=== PATIENT | male | born 1975 | race Caucasian/White ===

== ENCOUNTER 2019-11-26 11:07 | Emergency (ER) | payer SELFPAY ==
[2019-11-27 00:02] LABS: Protime INR 1.11
[2019-11-27 00:04] LABS: Absolute Lymphocytes (CBC) 2.8 K/uL (0.7-4.9); Basophils % 0.4 % (0-1.3); Lymphocytes % 36.7 % (15.3-44.8); MPV 8.6 fL (7.6-11.3); RBC Red Blood Cell Count 5.61 M/uL (4.33-5.43)
[2019-11-27 00:19] LABS: ALT/SGPT 46 U/L (12-78); AST/SGOT 24 U/L (15-37); Albumin 4.1 g/dL (3.4-5.0); Alkaline Phosphatase 78 U/L (45-117); BUN Blood Urea Nitrogen 12 mg/dL (7-18); Bicarbonate 26 mmol/L (21-32); Bilirubin Direct 0.1 mg/dL (0-0.2); Bilirubin Total 0.5 mg/dL (0.2-1.0); Glucose Level 106 mg/dL (74-106); NT PRO-BNP 173 pg/mL (<125); Potassium 3.9 mmol/L (3.5-5.1); Protein, Total 8.8 g/dL (6.4-8.2); Sodium Level 140 mmol/L (136-145); Troponin (Emerg Dept Use Only) < 0.02 ng/mL (0.0-0.045)
--- NOTE | 2019-11-27 01:44 | EDPHYS ---
Physician Documentation [facility] Name: Nino Ramsey Age: 44 yrs Sex: Male : 1975 Arrival Date: 11/26/2019 Time: 23:11 Bed 16 Private MD: ED Physician Danielito Weaver HPI: 11/26 04:15 This 44 yrs old Male presents to ER via Ambulatory with complaints of tw4 Breathing Difficulty, Heart Racing. 04:15 The patient presents with a history of heart racing. Context: The symptoms occur with tw4 anxiety. Onset: The symptoms/episode began/occurred today. Duration: The patient or guardian reports a single episode, that lasted 1 minute(s). Modifying factors: The symptoms are aggravated by anxiety, caffeine, The symptoms are alleviated by nothing. Associated signs and symptoms: The patient has no apparent associated signs or symptoms. Severity of symptoms: At their worst the symptoms were mild in the emergency department the symptoms have resolved and did so just prior to arrival, have improved markedly. The patient has experienced similar episodes in the past, a few times. Historical: - Allergies: 11/25 23:15 No Known Allergies; ll1 - PMHx: 23:15 High Cholesterol; Hypertension; CHF; ll1 - PSHx: 23:15 None; ll1 - Immunization history:: Flu vaccine is not up to date. - Social history:: Smoking status: Patient reports the use of cigarette tobacco products, smokes one-half pack cigarettes per day, Patient/guardian denies using alcohol, street drugs. ROS: 11/26 04:15 Constitutional: Negative for fever, chills, and weight loss, Eyes: Negative for injury, tw4 pain, redness, and discharge, Respiratory: Negative for shortness of breath, cough, wheezing, and pleuritic chest pain, Abdomen/GI: Negative for abdominal pain, nausea, vomiting, diarrhea, and constipation, Back: Negative for injury and pain, MS/Extremity: Negative for injury and deformity, Skin: Negative for injury, rash, and discoloration, Neuro: Negative for headache, weakness, numbness, tingling, and seizure. Cardiovascular: Positive for palpitations, Negative for chest pain, edema, orthopnea. Exam: 04:15 Constitutional: This is a well developed, well nourished patient who is awake, alert, tw4 and in no acute distress. Head/Face: Normocephalic, atraumatic. Neck: Trachea midline, no thyromegaly or masses palpated, and no cervical lymphadenopathy. Supple, full range of motion without nuchal rigidity, or vertebral point tenderness. No Meningismus. Chest/axilla: Normal chest wall appearance and motion. Nontender with no deformity. No lesions are appreciated. Cardiovascular: Regular rate and rhythm with a normal S1 and S2. No gallops, murmurs, or rubs. Normal PMI, no JVD. No pulse deficits. Respiratory: Lungs have equal breath sounds bilaterally, clear to auscultation and percussion. No rales, rhonchi or wheezes noted. No increased work of breathing, no retractions or nasal flaring. Abdomen/GI: Soft, non-tender, with normal bowel sounds. No distension or tympany. No guarding or rebound. No evidence of tenderness throughout. Back: No spinal tenderness. No costovertebral tenderness. Full range of motion. MS/ Extremity: Pulses equal, no cyanosis. Neurovascular intact. Full, normal range of motion. Neuro: Awake and alert, GCS 15, oriented to person, place, time, and situation. Cranial nerves II-XII grossly intact. Motor strength 5/5 in all extremities. Sensory grossly intact. Cerebellar exam normal. Normal gait. Vital Signs: 11/25 23:16 BP 169 / 85; Pulse 80; Resp 18; Temp 98.7; Pulse Ox 98% ; Weight 143.34 kg; Height 6 ll1 ft. 0 in. (182.88 cm); Pain 0/10; 11/26 00:43 BP 141 / 71; Pulse 67; Resp 19; Pulse Ox 95% on R/A; Pain 0/10; mt2 01:45 BP 137 / 69; Pulse 63; Resp 17; Pulse Ox 96% on R/A; Pain 0/10; mt2 11/25 23:16 Body Mass Index 42.86 (143.34 kg, 182.88 cm) ll1 MDM: 11/25 23:40 Patient medically screened. tw4 11/26 04:15 Differential diagnosis: arrythmia, dehydration. Data reviewed: vital signs, nurses tw4 notes. Data reviewed: lab test result(s), CBC, electrolytes, EKG, radiologic studies, plain films. Data interpreted: Pulse oximetry: Interpretation: normal. Counseling: I had a detailed discussion with the patient and/or guardian regarding: the historical points, exam findings, and any diagnostic results supporting the discharge/admit diagnosis. Medical screen evaluation completed. EMTALA emergency medical condition absent. Special discussion: I discussed with the patient/guardian in detail that at this point there is no indication for admission to the hospital. It is understood, however, that if the symptoms persist or worsen the patient needs to return immediately for re-evaluation. 11/25 23:46 Order name: CBC with Diff; Complete Time: :41 11/26 01:41 Interpretation: Normal except: RBC 5.61. 11/25 23:46 Order name: LFT's; Complete Time: :11/26 01:41 Interpretation: Normal except: TP 8.8; GLOB 4.7; A/G 0.9. 11/25 23:46 Order name: Magnesium; Complete Time: :41 11/26 01:41 Interpretation: Within normal limits: MG 2.0. 11/25 23:46 Order name: NT PRO-BNP; Complete Time: :41 11/26 01:41 Interpretation: Normal except: NT PRO-BNP 173. 11/25 23:46 Order name: PT-INR; Complete Time: :41 11/26 01:41 Interpretation: Normal except: PT 13.1. 11/25 23:46 Order name: Troponin (emerg Dept Use Only); Complete Time: :41 11/26 01:41 Interpretation: Within normal limits: TROPED < 0.02. 11/25 23:46 Order name: XRAY Chest (1 view) 11/25 23:46 Order name: EKG; Complete Time: 23:48 11/25 23:46 Order name: Cardiac monitoring; Complete Time: 23:47 11/25 23:46 Order name: EKG - Nurse/Tech; Complete Time: 23:47 11/25 23:46 Order name: IV Saline Lock; Complete Time: 23:47 11/25 23:46 Order name: Labs collected and sent; Complete Time: 23:47 11/25 23:47 Order name: Basic Metabolic Panel; Complete Time: 01:41 EDNC 11/26 01:41 Interpretation: Normal except: GFR 80. tw4 11/25 23:46 Order name: O2 Per Protocol; Complete Time: 00:52 tw4 11/25 23:46 Order name: O2 Sat Monitoring; Complete Time: 23:47 tw4 Administered Medications: No medications were administered Disposition: 11/27/19 01:43 Discharged to Home. Impression: Palpitations, Anxiety disorder, unspecified. - Condition is Stable. - Discharge Instructions: Palpitations, Social Anxiety Disorder, Palpitations, [id number], Generalized Anxiety Disorder. - Work release form, Medication Reconciliation Form, Thank You Letter, Antibiotic Education, Prescription Opioid Use form. - Follow up: Private Physician; When: Upon discharge from the Emergency Department; Reason: Recheck today's complaints, Continuance of care, Re-evaluation by your physician. - Problem is new. - Symptoms have improved. Signatures: Dispatcher [employer] EDMS Suzanna Zhang RN RN bb Danielito Weaver MD MD tw4 Salina Terrell RN RN ll1 Lucy Koenig RN RN mt2 Corrections: (The following items were deleted from the chart) 01:57 01:43 11/27/2019 01:43 Discharged to Home. Impression: Palpitations; Anxiety disorder, mt2 unspecified. Condition is Stable. Forms are Medication Reconciliation Form, Thank You Letter, Antibiotic Education, Prescription Opioid Use. Follow up: Private Physician; When: Upon discharge from the Emergency Department; Reason: Recheck today's complaints, Continuance of care, Re-evaluation by your physician. Problem is new. Symptoms have improved. 4 02:06 01:57 11/27/2019 01:43 Discharged to Home. Impression: Palpitations; Anxiety disorder, bb unspecified. Condition is Stable. Discharge Instructions: Palpitations, Social Anxiety Disorder, Palpitations, [id number], Generalized Anxiety Disorder. Forms are Medication Reconciliation Form, Thank You Letter, Antibiotic Education, Prescription Opioid Use. Follow up: Private Physician; When: Upon discharge from the Emergency Department; Reason: Recheck today's complaints, Continuance of care, Re-evaluation by your physician. Problem is new. Symptoms have improved. mt2
--- NOTE | 2019-11-27 01:44 | ER ---
Nurse's Notes [facility] Name: Nino Ramsey Age: 44 yrs Sex: Male : 1975 Arrival Date: 11/26/2019 Time: 23:11 Bed 16 Private MD: Diagnosis: Palpitations;Anxiety disorder, unspecified Presentation: 11/25 23:16 Chief complaint: Patient states: Sudden onset tonight of heart racing, slight SOB, ll1 feeling shaky. States he was having a easy night at work when this began. Similar episode 3 weeks ago, sent to [facility] for evaluation. States he was seen at [place] this morning, diagnosed with anxiety. Coronavirus screen: Client denies travel out of the [place] in the last 14 days. shortness of breath, "smokers cough" At this time, the client does not indicate any symptoms associated with coronavirus-19. Ebola Screen: Patient denies travel to an Ebola-affected area in the 21 days before illness onset. Initial Sepsis Screen: Does the patient meet any 2 criteria? No. Patient's initial sepsis screen is negative. Initial Sepsis Screen: Does the patient have a suspected source of infection? No. Patient's initial sepsis screen is negative. Risk Assessment: Do you want to hurt yourself or someone else? Patient reports no desire to harm self or others. Onset of symptoms was November 26, 2019. 23:16 Method Of Arrival: Ambulatory ll1 23:16 Acuity: TERRIE 3 ll1 Triage Assessment: 23:49 General: Behavior is cooperative. Respiratory: Reports shortness of breath on exertion mt2 Onset: The symptoms/episode began/occurred gradually, the patient has mild shortness of breath. Historical: - Allergies: 23:15 No Known Allergies; ll1 - PMHx: 23:15 High Cholesterol; Hypertension; CHF; ll1 - PSHx: 23:15 None; ll1 - Immunization history:: Flu vaccine is not up to date. - Social history:: Smoking status: Patient reports the use of cigarette tobacco products, smokes one-half pack cigarettes per day, Patient/guardian denies using alcohol, street drugs. Screenin:50 Abuse screen: Denies threats or abuse. Nutritional screening: No deficits noted. mt2 Tuberculosis screening: No symptoms or risk factors identified. Fall Risk None identified. Assessment: 23:49 Reassessment: Patient and/or family updated on plan of care and expected duration. Pain mt2 level reassessed. Patient is alert, oriented x 3, equal unlabored respirations, skin warm/dry/pink. General: Appears in no apparent distress. Pain: Complains of pain in anterior aspect of left upper chest Pain currently is 5 out of 10 on a pain scale. at worst was 5 out of 10 on a pain scale. Quality of pain is described as aching. Cardiovascular: Reports chest pain. Cardiovascular: Rhythm is sinus rhythm. Respiratory: Airway is patent Respiratory effort is even, unlabored, Breath sounds are clear. 23:49 Neuro: No deficits noted. : No deficits noted. EENT: No deficits noted. Derm: No mt2 deficits noted. Musculoskeletal: No deficits noted. 11/26 00:42 Reassessment: Patient and/or family updated on plan of care and expected duration. Pain mt2 level reassessed. Patient is alert, oriented x 3, equal unlabored respirations, skin warm/dry/pink. Patient denies pain at this time. 01:45 Reassessment: Patient and/or family updated on plan of care and expected duration. Pain mt2 level reassessed. Patient is alert, oriented x 3, equal unlabored respirations, skin warm/dry/pink. Patient denies pain at this time. Patient states feeling better. Patient states symptoms have improved. General: Appears in no apparent distress. Behavior is cooperative. Vital Signs: 11/25 23:16 BP 169 / 85; Pulse 80; Resp 18; Temp 98.7; Pulse Ox 98% ; Weight 143.34 kg; Height 6 ll1 ft. 0 in. (182.88 cm); Pain 0/10; 11/26 00:43 BP 141 / 71; Pulse 67; Resp 19; Pulse Ox 95% on R/A; Pain 0/10; mt2 01:45 BP 137 / 69; Pulse 63; Resp 17; Pulse Ox 96% on R/A; Pain 0/10; mt2 11/25 23:16 Body Mass Index 42.86 (143.34 kg, 182.88 cm) ll1 ED Course: 11/25 23:11 Patient arrived in ED. cl3 23:16 Arm band placed on. ll1 23:19 Triage completed. ll1 23:29 Lucy Koenig, KIRT is Primary Nurse. mt2 23:34 Danielito Weaver MD is Attending Physician. tw4 23:35 EKG completed in triage. Results shown to MD. bb 23:46 Lucy Koenig RN is Primary Nurse. mt2 23:48 Patient has correct armband on for positive identification. Bed in low position. Call mt2 light in reach. Side rails up X 1. 23:50 Initial lab(s) drawn, by me, sent to lab. Inserted saline lock: 20 gauge in left wrist, mt2 using aseptic technique. 08 00:11 XRAY Chest (1 view) In Process Unspecified. EDMS 01:45 No provider procedures requiring assistance completed. IV discontinued, intact, mt2 bleeding controlled, No redness/swelling at site. Pressure dressing applied. 02:05 Primary Nurse role handed off by Lucy Koenig RN bb Administered Medications: No medications were administered Outcome: 01:43 Discharge ordered by MD. tw4 01:45 Discharged to home ambulatory. mt2 01:45 Condition: good 01:45 Discharge instructions given to patient, Instructed on discharge instructions, follow up and referral plans. Demonstrated understanding of instructions, follow-up care. 01:57 Patient left the ED. mt2 02:06 Patient left the ED. bb Signatures: Dispatcher [employer] EDID Suzanna Zhang RN RN Danielito Beckham MD MD tw4 Iwona Terrell cl3 Salina Terrell RN RN ll1 Lucy Koenig RN RN mt2 Corrections: (The following items were deleted from the chart) 11/25 23:35 23:16 Chief complaint: Patient states: Sudden onset tonight of heart racing, slight bb SOB, feeling shaky. States he was having a easy night at work when this began. Similar episode 3 weeks ago, diagnosed with anxiety. ll1
[2019-11-27 02:04] VITALS: TEMP 98.7
[2019-11-27 02:07] VITALS: BP 137/69; O2SAT 96
--- NOTE | 2019-11-27 07:06 | RAD REPORT ---
EXAM DESCRIPTION: RAD - Chest Single View - 11/27/2019 12:10 am CLINICAL HISTORY: CHEST PAIN, shortness of breath COMPARISON: None TECHNIQUE: AP portable chest image was obtained 11/27/2019 12:10 am . FINDINGS: Lungs are clear. Heart and vasculature are normal. No measurable pleural effusion and no p neumothorax. No acute bony abnormality seen. No acute aortic findings suspected. IMPRESSION: No acute cardiopulmonary process.
== END 2019-11-27 02:06 | disposition home or self-care (01) ==
LOC: ER 11:07
DX: F41.9 Anxiety disorder, unspecified (principal); I10 Essential (primary) hypertension; F17.210 Nicotine dependence, cigarettes, uncomplicated
CPT/HCPCS: 36415; 71045; 80048; 80076; 83735; 83880; 84484; 85025; 85610; 93005; 99284